=== PATIENT | female | born 1980 | race Caucasian/White ===

== ENCOUNTER → 2024-04-25 09:18 | Day surgery (SDC) | payer BC, MEDICAID, SELFPAY ==
[2024-04-25 09:31] VITALS: BP 138/76; PULSE 68; RESP 20; O2SAT 96; BMI 62.6
[2024-04-25] MEDS: sodium chloride 0.9% 1,000 ML 30 ML IV (10:09)
--- NOTE | 2024-04-25 11:05 | ANES.PREANE2 ---
Pre-Anesthetic Assessment Height/Weight: Height 1.7 m Weight 181.437 kg Pulse Resp BP Pulse Ox O2 Del Method 68 20 H 138/76 96 Room Air 04/25/24 09:31 04/25/24 09:31 04/25/24 09:31 04/25/24 09:31 04/25/24 09:31 Preop Diagnosis: screening Operation Date: 04/25/24 10:30 Proposed Procedures p EGD 65622, 09462, G0105, K62.5, L29.0(Not Applicable) - DO liz Wayne Colonoscopy(Not Applicable) - Mt Mcclure DO Familial anesthetic complications: none Was Beta Samantha taken within 24 hours: N/A Was Clonidine taken within 24 hours: N/A Last intake: Intake Last Liquid Date 04/24/24 Last Liquid Time 19:00 Last Solid Date 04/23/24 Last Solid Time 20:00 Social No alcohol and No tobacco Exam alert, oriented x 3, clear to auscultation bilaterally and regular rate & rhythm Airway Submandibular: within normal limits Cervical ROM: within normal limits Mallampati: Class II Dentition: false History/ROS No significant history except as noted and No significant complaints Pulmonary Shortness of Breath SOB with activity CV/HEM Hypertension None reported Hepatic Hepatitis Hep C GI None reported Metabolic Morbid Obesity [facility] None reported Neuropsych None reported Anesthetic Plan ASA status: 3 Anesthesia: MAC Risk of > 500 ml blood loss (7ml/kg in children): No Medications/Allergies Home Medications Medication Instructions Recorded Confirmed Last Taken Type cyclobenzaprine 10 mg tablet 10 mg PO BID PRN Spasms 03/11/24 04/25/24 Unknown History ibuprofen 800 mg tablet 800 mg PO Q8H PRN pain #30 tabs 03/11/24 04/25/24 Unknown Rx metoprolol tartrate 100 mg tablet 100 mg PO BID 03/11/24 04/25/24 04/24/24 History naproxen 500 mg tablet 500 mg PO TID PRN Pain 03/11/24 04/25/24 Unknown History bupropion HCl 150 mg 24 hr tablet, 150 mg PO BID 04/23/24 04/25/24 04/24/24 History extended release Allergies Allergy/AdvReac Type Severity Reaction Status Date / Time No Known Allergies Allergy Unverified 04/02/24 15:05 Current Medications Generic Name Dose Route Start Last Admin Trade Name Terry PRN Reason Stop Dose Admin Sodium Chloride 1,000 mls @ 30 mls/hr 04/25/24 09:30 04/25/24 10:09 Sodium Chloride 0.9% IV 04/26/24 09:29 30 mls/hr .Q24H CHELSI Administration PFSH Anesthesia Surgical History (Updated 04/02/24 @ 15:37 by Mt Mcclure DO) History of colonoscopy with polypectomy [id number] Social History Smoking and tobacco/nicotine status: never used tobacco/nicotine Data Anesthesia Cardiac Studies: No Data to Display
--- NOTE | 2024-04-25 11:42 | W.PM.OPSUD ---
Surgery/Procedure H&P Update DATE OF PROCEDURE: April 25, 2024 DATE H&P PERFORMED: 04/02/24 H&P UPDATE INFORMATION: I have reviewed H&P completed within last 30 days, I have examined patient prior to procedure and No changes to prior documentation PREOP DIAGNOSIS: screening PLANNED PROCEDURE: Operation Date: 04/25/24 10:30 Proposed Procedures p EGD 92750, 67166, G0105, K62.5, L29.0(Not Applicable) - DO liz Wayne Colonoscopy(Not Applicable) - Mt Mcclure DO
[2024-04-25] MEDS: EPINEPHrine 1 mg/mL INJ XX (12:10)
[2024-04-25 12:32] VITALS: BP 124/78; PULSE 67; RESP 18; TEMP 36.2; O2SAT 93
--- NOTE | 2024-04-25 12:35 | ANE.PACU2 ---
Inpatient post-anesthesia follow up: Airway intact: Yes Vital signs: Temperature 97.1 F Pulse Rate 62 Respiratory Rate 17 Blood Pressure 148/95 Pulse Oximetry 96 Oxygen Delivery Me thod Room Air Oxygen Flow Rate Fraction of Inspir ed Oxygen Hydration adequate: Yes Nausea and vomiting: No Pain level: 1 Mental status: Baseline
[2024-04-25 12:45] VITALS: BP 148/95; PULSE 62; RESP 17; O2SAT 96
== END | disposition home or self-care (01) ==
PROVIDERS: PCP Family Medicine; Visit Provider Surgery
PROC: 0DJ08ZZ Inspection of Upper Intestinal Tract, Via Natural or Artificial Opening Endoscopic (ICD-10-PCS; CPT 43235; principal; 2024-04-25 10:30)
PROC: 0DJD8ZZ Inspection of Lower Intestinal Tract, Via Natural or Artificial Opening Endoscopic (ICD-10-PCS; CPT 45378; 2024-04-25 10:30)
DX: K62.5 Hemorrhage of anus and rectum (principal); L29.0 Pruritus ani; K29.50 Unspecified chronic gastritis without bleeding; K21.00 Gastro-esophageal reflux disease with esophagitis, without bleeding; D12.5 Benign neoplasm of sigmoid colon; K62.1 Rectal polyp; I10 Essential (primary) hypertension; Z86.19 Personal history of other infectious and parasitic diseases; E66.01 Morbid (severe) obesity due to excess calories; Z68.44 Body mass index [BMI] 60.0-69.9, adult
CPT/HCPCS: 43239; 45385; 88305; 88342; J0171; J2704; J7030

== ENCOUNTER 2024-05-31 12:30 | Outpatient (CLI) | payer BC, MEDICAID, SELFPAY | END 2024-05-31 12:31 | disposition home or self-care (01) | LOC: LAB 12:31 | PROVIDERS: PCP Family Medicine; Visit Provider Surgery | DX: K29.70 Gastritis, unspecified, without bleeding (principal); B96.81 Helicobacter pylori [H. pylori] as the cause of diseases classified elsewhere | CPT/HCPCS: 87338 ==

== ENCOUNTER 2024-08-08 09:21 | Outpatient (CLI) | payer BC, SELFPAY ==
--- NOTE | 2024-08-08 09:26 | MR_ITS ---
WS: [id number] MRI LUMBAR SPINE NONCONTRAST HISTORY: BILATERAL LEG WEAKNESS/BACK PAIN W/RADICULOPATHY COMPARISON: None available. TECHNIQUE: Sagittal and axial multisequence imaging is submitted. T11 hemangioma. Mild LEFT curvature lumbar spine. Moderate disc base narrowing at L4-5. Conus terminates normally at L1-2 disc level. L1-L2: Mild RIGHT facet arthritis. No stenosis. L2-L3: Bilateral mild facet arthritis. No stenosis. L3-L4: Mild annular disc bulging with moderate ligamentum flavum and facet arthritis. Facet joint arthritis encroaching into the RIGHT lateral thecal sac and slight encroachment upon the traversing RIGHT L4 nerve root. Mild central, bilateral subarticular recess and RIGHT foraminal stenosis. L4-L5: Diffuse annular disc bulging with osteophytic ridging. Marked facet arthritis. No disc protrusion. Mild central and RIGHT foraminal stenosis. Moderate subarticular recess and LEFT foraminal stenosis. L5-S1: Mild annular disc bulging and osteophytic ridging. Disc osteophyte complex encroaching into the LEFT foramen causing moderate stenosis. There is contact on the exiting LEFT L5 nerve root. Mild RIGHT foraminal stenosis. MR/MR lumbar spine wo con* [id number] IMPRESSION: 1. Moderate degenerative disc disease at L4-5. 2. L4-5: Mild central and RIGHT foraminal stenosis. Moderate subarticular rece ss and LEFT foraminal stenosis due to disc osteophyte disease. 3. Moderate LEFT foraminal stenosis due to disc osteophyte complex. Contact on the exiting LEFT L5 nerve root. Minimal RIGHT foraminal stenosis. 4. L3-4: Mild central, bilateral subarticular recess and RIGHT foraminal steno sis. Mild contact on the RIGHT traversing L4 nerve root by facet joint arthropa thy.
== END 2024-08-08 09:22 | disposition home or self-care (01) ==
LOC: RAD 09:23
PROVIDERS: PCP Family Medicine; Visit Provider Family Medicine
DX: R29.898 Other symptoms and signs involving the musculoskeletal system (principal); M54.16 Radiculopathy, lumbar region; M51.369 Other intervertebral disc degeneration, lumbar region without mention of lumbar back pain or lower extremity pain; M48.061 Spinal stenosis, lumbar region without neurogenic claudication; M25.78 Osteophyte, vertebrae; M47.896 Other spondylosis, lumbar region; D18.09 Hemangioma of other sites; M43.8X6 Other specified deforming dorsopathies, lumbar region; M51.379 Other intervertebral disc degeneration, lumbosacral region without mention of lumbar back pain or lower extremity pain; M48.07 Spinal stenosis, lumbosacral region
CPT/HCPCS: 72148

== ENCOUNTER → 2024-08-27 13:25 | Outpatient (BNVA) | payer BC, SELFPAY | PROVIDERS: PCP Family Medicine; Visit Provider Podiatrist Foot & Ankle Surgery | DX: M79.671 Pain in right foot (principal); M79.672 Pain in left foot; M72.2 Plantar fascial fibromatosis | CPT/HCPCS: 73630 ==

== ENCOUNTER 2024-10-17 13:38 | Outpatient (CLI) | payer BC, MEDICAID, SELFPAY ==
--- NOTE | 2024-10-17 13:45 | XR_ITS ---
WS: [id number] XR shoulder LT min 2V* [id number] REASON FOR EXAM: PAIN IN LEFT SHOULDER FINDINGS: No fracture or focal bone lesion. Significant narrowing of the acromioclavicular joint with moderate osteophytosis. Significant narrowing of the glenohumeral joint with significant osteophytosis of the humeral head. No significant abnormality of the greater biceps tuberosity. XR/XR shoulder LT min 2V* [id number] IMPRESSION: Significant osteoarthritis of the acromioclavicular joint and glenohumeral join t as above.
== END 2024-10-17 13:39 | disposition home or self-care (01) ==
LOC: RAD 13:40
PROVIDERS: PCP Family Medicine; Visit Provider Family Medicine
DX: M19.012 Primary osteoarthritis, left shoulder (principal); M25.712 Osteophyte, left shoulder
CPT/HCPCS: 73030

== ENCOUNTER → 2024-11-07 13:10 | Outpatient (BNVA) | payer BC, MEDICAID, SELFPAY | PROVIDERS: PCP Family Medicine; Visit Provider Specialist | DX: M19.012 Primary osteoarthritis, left shoulder (principal) | CPT/HCPCS: 73030 ==

== ENCOUNTER 2024-12-07 14:39 | Emergency (ER) | payer BC, MEDICAID, SELFPAY ==
--- OUTSIDE RECORDS SUMMARY | 2018-04-17 08:20 | XMS_ITS | Continuity of Care Document ---
Author Organization [facility] Address [address] [place] [phone] Phone Care Team Providers Care Major Appliance Assembly Supervisor Name Role Phone Aden Zamora Unavailable Unavailable Advance Directives Directive Yes / No Effective Date File Name No Information Encounters Encounter Description Practice Location Reason(s) For Visit Diagnoses Date Provider Providers Copied on Encounter [facility], [address] [place] [address], [facility], tel:[phone] *[facility] No Information Sera Samaniego. [address] [place] [address], [facility], . tel:[phone] Family History Family Member Type Diagnosis Age At Onset No Information Payers Payer name Insurance type Covered constitution party ID Authoriza tion(s) No Information Social History [...]
--- OUTSIDE RECORDS SUMMARY | 2024-12-07 14:43 | XMS_ITS | Patient Health Record ---
Author Organization [facility] Address [address] [place], [place] [address] Care Team Providers Care Laborer Prestressed Concrete Name Role Phone Joshua VICK, Cristo Primary Care Provider Katherin VICK, Fahad Sky [phone] Allergies Allergen (clinical drug ingredient) Drug/Non Drug Allergy documented on EMR Reaction Allergy Type Onset Date Status None or not verifiab le (as is Current Medications) (uncoded) Unknown Allergy Active Reason For Referral No Information Medications Medication SIG (Take, Route, Frequency, Duration) Notes Start Date End Date Status fentanyl 50mcg/ml 1-2 ml intravenous m ay repeat PRN for procedural anxiety/ pain 09/20/2007 Active midazolam 1 mg/ml 1-2 mg intravenous m ay repeat PRN for procedural anxiety 09/20/2007 Active Pristiq 100 mg 1 tab orally once a day for 30 day(s) Active hydrochlorothiazide-lisin opril 12.5 mg-10 mg 1 tab orally once a day for 7 day(s) Active Valium 10 mg 1 tab orally 3 times a day for 30 day(s) Active Abilify 20 mg 1 tab orally once a day for 30 day(s) Active [place] 325 mg-10 mg 1 tab orally Q6H, pr n for 10 day(s) Active alfentanil 500mcg/ml 1-2 ml intravenous may repeat PRN for procedural anxiety/ pain 09/20/2007 Active TENS as programmed apply patches to aff ected area as needed for trial followed by permanent device if effective Active metoprolol XL 100 mg 1 tab orally BID fo r 30 day(s) Active gabapentin 300 mg 1 cap orally 2 times a day for 30 day(s) Active None or not verifiable 06/13/19001900 Active ibuprofen 200 mg 2 tab(s) orally Q4H PRN for 10 day(s) Active albuterol 90 mcg/inh 2 puff(s) inhaled P RN for 30 day(s) Active Plan Of Treatment No Information Insurance Providers Payer Name Payer Address Payer Phone Subscriber Number Group Number Insured Name Patient Relationship to Insured Coverage Start Date Coverage End Date [place] [address] [place] [address] [id number] Rosmery López Self - patient is the insured Medical (General) History Medical History History ICD Code None or not verifiable Surgical History Surgery Date(Month/Year) Appendectomy 1991 section 05/2001 Tubal ligation 10/2001 Hospitalization History Reason Date(Month/Year) Surgeries
[2024-12-07 14:58] VITALS: BP 153/97; PULSE 65; RESP 18; TEMP 36.6; O2SAT 97; BMI 62.6
--- NOTE | 2024-12-07 15:10 | XR_ITS ---
WS: [id number] Exam: XR knee LT 3V* [id number] Date/Time of Exam: 12/07/2024 3:15 PM Reason For Exam: pain No fracture. Mild DJD of the lateral joint compartment. No joint effusion. No soft tissue abnormalities noted. XR/XR knee LT 3V* [id number] IMPRESSION: 1. Mild DJD of the lateral joint compartment
--- NOTE | 2024-12-07 15:10 | ED_ITS ---
HPI - Extremity Problem General: Chief complaint: Extremity Problem,Nontraumatic Stated complaint: lt knee inj Time Seen by Provider: 12/07/24 15:03 Source: patient Mode of arrival: ambulatory Limitations: no limitations History of Present Illness: Patient is a 44-year-old female who presents to ED today with complaint of left knee pain. She states she has had pain in the joint over the past 3 days or so. No known injury or trauma. He has not noticed any swelling or overlying redness or warmth. Pain seems to be worse with ambulation. She has not noticed any color or temperature changes to the leg. Denies numbness, tingling, loss of sensation. MD Complaint: joint pain Onset (ago): day(s) (3 days) Pain Consistency: constant Location: left and knee Radiation: none Relieving factors: nothing Exacerbating factors: walking Associated symptoms: Reports no associated symptoms; Deny chest pain Related Data Home Medications ?Medication ?Instructions ?Recorded ?Confirmed naproxen 500 mg tablet 500 mg PO TID PRN Pain 03/1111/07/24 Held on 04/25/24. Instructions: Resume on 04/27/24. phentermine 15 mg capsule 15 mg PO DAILY 07/09/2410/12 metoprolol tartrate 100 mg tablet 100 mg PO DAILY 07/1411/07/24 meloxicam 7.5 mg tablet mg PO 11/07/24 11/07/24 Previous Rx's ?Medication ?Instructions ?Recorded hydroxyzine HCl 25 mg tablet 25 mg PO BID PRN itching #60 tabs 05/14/24 clobetasol 0.05 % topical cream See Rx Instructions .R oute 07/20/24 .COMPLEX #60 grams prazosin 2 mg capsule 2 mg PO .HS #30 caps 5 estradiol 0.01% (0.1 mg/gram) See Rx Instructions .Rou te 11/19/24 vaginal cream .COMPLEX #42.5 grams meloxicam 15 mg tablet 15 mg PO DAILY 30 days #30 t abs 11/19/24 Allergies Allergy/AdvReac Type Severity Reaction Status Date / Time No Known Allergies Allergy Verified 11/07/24 10:21 Review of Systems Card: Denies: chest pain Resp: Denies: dyspnea Musc: Reports: joint pain (L knee); Denies: extremity pain, extremity swelling, joint redness or joint warmth Neuro: Denies: numbness in extremities or sensory changes [facility] ED PFSH: Medical History Psychiatric care Tubular adenoma of colon Surgical History Hx laparoscopic cholecystectomy Hx of carpal tunnel repair Hx of section Hx of tubal ligation History of endometrial ablation Hx of appendectomy History of colonoscopy with polypectomy [id number] Social History Smoking and tobacco/nicotine status: former use of tobacco/nicotine Physical Exam Const: COMMON NORMALS: no acute distress, no limitations, alert and well nourished GENERAL APPEARANCE: cooperative NUTRITIONAL APPEARANCE: obese morbidly obese (BMI is over 62) ORIENTATION/CONSCIOUSNESS: Yes awake, Yes oriented to person, Yes oriented to place and Yes oriented to time Extremity: COMMON NORMALS: full ROM, capillary refill normal, no clubbing, cyanosis or edema, no calf tenderness and no pedal edema GENERAL: Yes normal exam except as noted RIGHT LOWER EXTREMITY: Yes knee joint (TTP posterior L knee; swelling hard to appreciate due to body habitus) Right knee: Yes inspection (normal gross inspection), Yes ROM (normal) and Yes neurovascular exam (normal) Neuro: COMMON NORMALS: moves all extremities, no focal motor deficits and no sensory deficits noted SENSORIUM/ORIENTATION: Yes alert, Yes oriented to person, Yes oriented to place and Yes oriented to time Course Vital Signs: Vital signs: Vital Signs Temperature 97.9 F 12/07/24 14:58 Pulse Rate 65 12/07/24 14:58 Respiratory Rate 18 12/07/24 14:58 Blood Pressure 153/97 12/07/24 14:58 Pulse Oximetry 97 12/07/24 14:58 Oxygen Delivery Me thod Room Air 12/07/24 14:58 MDM - Extremity (Nontraumatic) Medical Decision Making XR of the left knee is unremarkable apart from chronic degenerative changes. She does see [facility] orthopedics for other joint related issues. Recommend she follow-up with her specialist there regarding her knee pain. She does have an upcoming appointment with them for next week. She understood they may require her to schedule another visit for evaluation of the knee as her appointment for next week is regarding her shoulder. Lab Data Radiology Impressions Knee X-Ray 12/07/24 15:10 IMPRESSION: 1. Mild DJD of the lateral joint compartment All radiology interpretation(s) finalized by discharge Discharge Plan Discharge Patient Disposition: Home Clinical Impression: Acute pain of left knee Condition: Stable Prescriptions: No Action hydroxyzine HCl 25 mg tablet 25 mg PO BID PRN (Reason: itching) Qty: 60 3RF naproxen 500 mg tablet 500 mg PO TID PRN (Reason: Pain) metoprolol tartrate 100 mg tablet 100 mg PO DAILY phentermine 15 mg capsule 15 mg PO DAILY Rx Instructions: must administer 2 hours after breakfast prazosin 2 mg capsule 2 mg PO .HS Qty: 30 2RF meloxicam 7.5 mg tablet PO clobetasol 0.05 % cream See Rx Instructions .ROUTE .COMPLEX Qty: 60 0RF Dose Instruction: APPLY TOPICALLY TWICE DAILY FOR 12 WEEKS Rx Instructions: APPLY TOPICALLY TWICE DAILY FOR 12 WEEKS estradiol 0.01 % (0.1 mg/gram) cream See Rx Instructions .ROUTE .COMPLEX Qty: 42.5 0RF Dose Instruction: INSERT PEA SIZED AMOUNT(1 GRAM) INTRAVAGINALLY DAILY FOR 12 WEEKS Rx Instructions: INSERT PEA SIZED AMOUNT(1 GRAM) INTRAVAGINALLY DAILY FOR 12 WEEKS meloxicam 15 mg tablet 15 mg PO DAILY 30 Days Qty: 30 1RF Rx Instructions: Take one tablet daily. Discharge Orders: Discharge ED (Routine); Ordered 12/07/24 Ordered By: Leonela Mckenzie Referrals: Miguelangel Winn MD [Primary Care Provider, Family Practice] Patient Instructions: Patient Portal & Yash Instructions Print Language: Turkmen Coding Level of Care Code ED High Risk Ob for Paula Escobar
== END 2024-12-07 15:49 | disposition home or self-care (01) ==
PROVIDERS: Emergency Provider Physician Assistant; PCP Family Medicine
DX: M25.562 Pain in left knee (principal)
CPT/HCPCS: 73562; 99283

== ENCOUNTER 2024-12-23 13:07 | Emergency (ER) | payer BC, MEDICAID, SELFPAY ==
--- OUTSIDE RECORDS SUMMARY | 2018-04-17 08:20 | XMS_ITS | Continuity of Care Document ---
Author Organization [facility] Address [address] [place] [address] Phone Care Team Providers Care Buyer Agent Name Role Phone Aden Zamora Unavailable Unavailable Advance Directives Directive Yes / No Effective Date File Name No Information Encounters Encounter Description Practice Location Reason(s) For Visit Diagnoses Date Provider Providers Copied on Encounter [facility], [address] [place] [address], [facility], tel:[phone] *[facility] No Information Sera Samaniego. [address] [place] [address], [facility], . tel:[phone] Family History Family Member Type Diagnosis Age At Onset No Information Payers Payer name Insurance type Covered democrat ID Authoriza tion(s) No Information Social History Type Description Quantity Date Captured Comments Sex Unknown Smoking Status No Information Chief Complaint And Reason For Visit No Information Reason For Referral Reason For Referral No Information History Of Present Illness Encounter Date Complaint History Of Prese nt Illness No Information Functional Status Date Functional Assessmen t No Information Instructions Date Instruction Additional Infor mation No Information Assessments Type Assessment Date No Information Patient Care Teams Name Effective Dates (start - stop) Status Members No Information
[2024-12-23 13:08] VITALS: BP 190/114; PULSE 68; TEMP 36.3; O2SAT 97; BMI 62.6
--- NOTE | 2024-12-23 13:08 | XRR_ITS ---
PROCEDURE INFORMATION: Exam: XR Left Knee Exam date and time: 12/23/2024 1:14 PM Age: 44 years old Clinical indication: Left; Lt knee pain x 3 weeks; No known injury TECHNIQUE: Imaging protocol: Radiologic exam of the left knee. Views: 3 views. COMPARISON: CR XR knee LT 3V* [id number] 12/07/2024 3:24 PM FINDINGS: Bones/joints: There are mild tricompartment degenerative changes. No acute fracture or dislocation. A [id number] knee joint effusion is noted Soft tissues: Normal. XR/XR knee LT 3V* [id number] IMPRESSION: 1. No acute fracture or dislocation. 2. Mild tricompartment degenerative changes with a [id number] knee joint effusion
--- OUTSIDE RECORDS SUMMARY | 2024-12-23 13:14 | XMS_ITS | Patient Health Record ---
Author Organization [facility] Address [address] [place], [place] [id number] Care Team Providers Care Knobber Name Role Phone Joshua VICK, Cristo Primary Care Provider Katherin VICK, Fahad Sky [phone] Allergies Allergen (clinical drug ingredient) Drug/Non Drug [...] once a day for 30 day(s) Active Boyds 325 mg-10 mg 1 tab orally Q6H, [...] End Date [place] [address] [place] [id number] Rosmery López Self - patient is the insured Medical (General) History Medical History History ICD Code None or not verifiable Surgical History Surgery Date(Month/Year) Appendectomy 1991 section 05/2001 Tubal ligation 10/2001 Hospitalization History Reason Date(Month/Year) Surgeries
--- NOTE | 2024-12-23 15:26 | ED_ITS ---
HPI - Extremity Problem General: Chief complaint: Extremity Problem,Nontraumatic Stated complaint: lt knee inj Time Seen by Provider: 12/23/24 15:04 History of Present Illness: Patient is 44-year-old female history of hypertension, presents to the ED with worsening left knee pain, and popping. This has been worsening over the last 3 weeks. Now when she is walking, she has popping, and having instability. Denies any injury or trauma to this left knee. She is awaiting to see Dr. Abrams regarding her shoulder on the . She has not yet had follow-up with orthopedics, however did see her primary care. Primary care physician did attempt to order MRI; however patient's insurance declined MRI. Associated symptoms: Deny chest pain, fever(s) or rash Related Data Home Medications ?Medication ?Instructions ?Recorded ?Confirmed naproxen 500 mg tablet 500 mg PO TID PRN Pain 03/1112/11/24 Held on 04/25/24. Instructions: Resume on 04/27/24. phentermine 15 mg capsule 15 mg PO DAILY 07/09/24 0707/07 metoprolol tartrate 100 mg tablet 100 mg PO DAILY 07/1412/11/24 meloxicam 7.5 mg tablet mg PO 11/07/24 12/11/24 Previous Rx's ?Medication ?Instructions ?Recorded hydroxyzine HCl 25 mg tablet 25 mg PO BID PRN itching #60 tabs 05/14/24 clobetasol 0.05 % topical cream See Rx Instructions .R oute 07/20/24 .COMPLEX #60 grams prazosin 2 mg capsule 2 mg PO .HS #30 caps 5 estradiol 0.01% (0.1 mg/gram) See Rx Instructions .Rou te 11/19/24 vaginal cream .COMPLEX #42.5 grams meloxicam 15 mg tablet 15 mg PO DAILY 30 days #30 t abs 11/19/24 celecoxib 200 mg capsule 200 mg PO DAILY 30 days #30 caps 12/23/24 methocarbamol 500 mg tablet 500 mg PO Q8H PRN muscle s pasm #30 12/23/24 tabs Allergies Allergy/AdvReac Type Severity Reaction Status Date / Time No Known Allergies Allergy Verified 12/23/24 13:14 Review of Systems Const: Denies: fever(s) or chills Eyes: Denies: change in vision or blurry vision ENMT: Denies: throat pain or dry mouth Card: Denies: chest pain or palpitations Resp: Denies: dyspnea or non-productive cough GI: Denies: abdominal pain, nausea or vomiting : Denies: flank pain or difficulty voiding Musc: Reports: extremity pain, joint pain, joint stiffness, limited range of motion and muscle weakness; Denies: neck pain, back pain, extremity swelling or joint swelling Skin/Breast: Denies: rash or pruritus Neuro: Denies: headache(s) or numbness in extremities Psych: Denies: anxiety or depression Endo: Denies: polyuria or polydipsia Alexander/Lymph: Denies: easy bruising or easy bleeding All/Imm: Denies: urticaria or throat swelling PFSH ED PFSH: Medical History (Updated 12/23/24 @ 15:28 by SHUN Brooke) Psychiatric care Tubular adenoma of colon Surgical History Hx laparoscopic cholecystectomy Hx of carpal tunnel repair Hx of section Hx of tubal ligation History of endometrial ablation Hx of appendectomy History of colonoscopy with polypectomy [id number] Social History Smoking and tobacco/nicotine status: former use of tobacco/nicotine Physical Exam 2 Const: COMMON NORMALS: no acute distress, average body habitus and patient oriented x3 GENERAL APPEARANCE: cooperative and comfortable ORIENTATION/CONSCIOUSNESS: Yes awake HENMT: COMMON NORMALS: normocephalic and atraumatic HEAD & SCALP: normocephalic and atraumatic Neck/C-Spine: COMMON NORMALS: full ROM and no lymphadenopathy Lymph: LYMPHATIC: no lymphadenopathy noted Chest: COMMONS NORMALS: normal inspection of the chest and normal palpation of entire chest wall Resp: COMMON NORMALS: normal respiratory effort and No retractions Cardio: COMMON NORMALS: regular rate and regular rhythm RATE: regular rate RHYTHM: regular rhythm GI: COMMON NORMALS: Normal to inspection, nondistended, normoactive bowel sounds present and Soft to palpation PALPATION: Yes Soft to palpation : COMMON NORMALS: Yes no CVA tenderness BLADDER/KIDNEY EXAM: Yes no CVA tenderness Back/Pelvis: COMMON NORMALS: no CVA tenderness Extremity: LEFT LOWER EXTREMITY: Yes knee joint Left knee: Yes inspection (no effusion), Yes palpation (no pain on movement), Yes ROM (intact) and Yes special tests Left knee special tests: Anterior drawer sign: Negative, Anterior Doc test: Negative, Posterior Doc test: Negative, Valgus stress test: Negative and Varus stress test: Negative Neuro: COMMON NORMALS: patient oriented x3 Psych: COMMON NORMALS: mental status grossly normal and Normal thought process present THOUGHT PROCESS: Normal thought process present Skin: COMMON NORMALS: no rashes or lesions noted and no wounds GENERAL SKIN EXAM: no rashes or lesions noted Course Vital Signs: Vital signs: Vital Signs Temperature 97.4 F L 12/23/24 13:08 Pulse Rate 68 12/23/24 13:08 Blood Pressure 190/114 12/23/24 13:08 Pulse Oximetry 97 12/23/24 13:08 Oxygen Delivery Me thod Room Air 12/23/24 13:08 MDM - Extremity (Nontraumatic) Medical Decision Making Patient is a 44-year-old morbidly obese female with pain to left knee. When compared to the right knee, this appears about the same size. X-ray notes small to moderate knee joint effusion. I do not believe this is amicable to drain. She does have range of motion although with pain, and popping, some instability. Discussed with patient. She has an appointment with Dr. Abrams on 12/26 for her shoulder, which I have asked her to call in the morning and change it to her knee, or add knee evaluation since she does have a small to moderate knee joint effusion. I have also added celecoxib and Robaxin to her regimen to help with pain control. Explained to patient at length and asked her not to use any other NSAIDs. Medical Records I reviewed the patient's medical records. Lab Data Radiology Impressions Knee X-Ray 12/23/24 13:08 IMPRESSION: 1. No acute fracture or dislocation. 2. Mild tricompartment degenerative changes with a [id number] knee joint effusion All radiology interpretation(s) finalized by discharge ED provider radiology interpretation(s): no acute/joint effusion noted Discharge Plan Discharge Patient Disposition: Home Clinical Impression: Acute pain of left knee Condition: Stable Prescriptions: New celecoxib 200 mg capsule 200 mg PO DAILY 30 Days Qty: 30 0RF methocarbamol 500 mg tablet 500 mg PO Q8H PRN (Reason: muscle spasm) Qty: 30 0RF No Action hydroxyzine HCl 25 mg tablet 25 mg PO BID PRN (Reason: itching) Qty: 60 3RF naproxen 500 mg tablet 500 mg PO TID PRN (Reason: Pain) metoprolol tartrate 100 mg tablet 100 mg PO DAILY phentermine 15 mg capsule 15 mg PO DAILY Rx Instructions: must administer 2 hours after breakfast prazosin 2 mg capsule 2 mg PO .HS Qty: 30 2RF meloxicam 7.5 mg tablet PO clobetasol 0.05 % cream See Rx Instructions .ROUTE .COMPLEX Qty: 60 0RF Dose Instruction: APPLY TOPICALLY TWICE DAILY FOR 12 WEEKS Rx Instructions: APPLY TOPICALLY TWICE DAILY FOR 12 WEEKS estradiol 0.01 % (0.1 mg/gram) cream See Rx Instructions .ROUTE .COMPLEX Qty: 42.5 0RF Dose Instruction: INSERT PEA SIZED AMOUNT(1 GRAM) INTRAVAGINALLY DAILY FOR 12 WEEKS Rx Instructions: INSERT PEA SIZED AMOUNT(1 GRAM) INTRAVAGINALLY DAILY FOR 12 WEEKS meloxicam 15 mg tablet 15 mg PO DAILY 30 Days Qty: 30 1RF Rx Instructions: Take one tablet daily. Discharge Orders: Discharge ED (Routine); Ordered 12/23/24 Ordered By: Pau Aguilar Referrals: Miguelangel Winn MD [Primary Care Provider, [facility]] Discharge Diet: Usual diet Discharge Activity: Limit activity as instructed Patient Instructions: Knee Pain (ED), P.R.I.C.E. Treatment (ED), Patient Portal & Yash Instructions Activity Restrictions/Additional Instructions: Garcia wrap, ice, elevate, compress Take medication as prescribed Do not take other NSAIDs such as naproxen/Aleve, aspirin, Excedrin, ibuprofen Call on Tuesday to add an appointment for your knee with Dr. Abrams. Return to ED for worsening pain, or if you have a fever, greater than 100.4 ?F, redness around this joint. Print Language: Albanian Coding Level of Care Code ED Shoe Dyer for Paula Escobar
[2024-12-23] MEDS: orphenadrine 30 mg/mL Inj 2 mL 60 MG IM (15:56)
== END 2024-12-23 16:10 | disposition home or self-care (01) ==
PROVIDERS: Emergency Provider Physician Assistant; PCP Family Medicine
DX: M25.562 Pain in left knee (principal); I10 Essential (primary) hypertension; Z79.899 Other long term (current) drug therapy
CPT/HCPCS: 73562; 96372; 99284; J1885; J2360

== ENCOUNTER → 2024-12-31 08:33 | Outpatient (BNVA) | payer BC, MEDICAID, SELFPAY | PROVIDERS: PCP Family Medicine; Visit Provider Specialist | DX: M17.12 Unilateral primary osteoarthritis, left knee (principal) | CPT/HCPCS: 73560; 73565 ==

== ENCOUNTER 2025-01-11 12:56 | Outpatient (CLI) | payer BC, MEDICAID, SELFPAY ==
--- NOTE | 2025-01-11 13:00 | MR_ITS ---
WS: [id number] MRI LEFT KNEE HISTORY: left knee pain COMPARISON: Radiograph 12/23/2024 Quality of this study is compromised by body habitus and motion. Anterior cruciate ligament: ACL is difficult to see in its entirety but it does appear to be intact. No full-thickness tear. Posterior cruciate ligament: Intact. Medial collateral ligament: Intact. Posterior lateral corner structures: Intact. Medial menisci: Intact. Normal signal, size and shape. Lateral meniscus: Anterior horn is extruded from the joint space. For the meniscus to be this far extruded there is probably a tear near the free edge. Posterior horn is normal. Extensor mechanism: Distal quadriceps tendon and patellar tendons are intact. Fluid and soft tissue: Large suprapatellar joint effusion. Mild amount of soft tissue edema surrounding the knee. No Bentley's cyst. Osseous and articular structures: Patellofemoral compartment: Moderate lateral subluxation of the patella. Retinaculum are intact. The medial retinaculum is thin. Subchondral edema in the lateral patellar facet. There is severe narrowing of the lateral compartment. Diffuse chondromalacia involving both the medial and lateral patellar facets. Medial compartment: Mild narrowing of the medial compartment. Diffuse mild thinning of the cartilage. No fracture identified. Lateral compartment: Moderate lateral compartment narrowing. Moderate diffuse chondromalacia. There is a small amount of edema in the lateral femoral condyle and the lateral tibial plateau. There is a small osteochondral defect surrounded by edema measuring 4 mm involving the lateral femoral condyle towards the intercondylar notch. No intra-articular body identified. Possible intra-articular body identified posterior to the PCL, 5 mm. MR/MR knee LT con* [id number] IMPRESSION: 1. Quality of this exam is compromised by body habitus and motion. 2. Anterior horn of the lateral meniscus is completely extruded from the joint space. Meniscal tear at the free edge is suspected to result in this amount of extrusion. 3. Large suprapatellar joint effusion. 4. Mild soft tissue edema surrounding the knee. 5. Moderate lateral subluxation of the patella within medial patellar retinacu lum. 6. Diffuse chondromalacia medial and lateral patellar facets and a small amoun t of subchondral edema in the lateral facet. 7. Moderate lateral compartment joint space narrowing with diffuse chondromala dorinda. 8. Edema in the lateral femoral condyle and the tibial plateau. 9. Osteochondral defect surrounded by edema in the lateral femoral condyle tow ards the intercondylar notch. 10. Possible intra-articular body identified posterior to the PCL measures 5 m m. 11. Mild narrowing the medial compartment with mild chondromalacia.
== END 2025-01-11 12:57 | disposition home or self-care (01) ==
LOC: RAD 12:57
PROVIDERS: PCP Family Medicine; Visit Provider Specialist
DX: M17.12 Unilateral primary osteoarthritis, left knee (principal); M25.562 Pain in left knee
CPT/HCPCS: 73721

== ENCOUNTER 2025-03-06 13:53 | Emergency (ER) | payer MEDICAID, SELFPAY ==
[2025-03-06 13:57] VITALS: BP 144/92; PULSE 86; TEMP 36.4; O2SAT 96; BMI 61.4
[2025-03-06] MEDS: ondansetron 2 mg/ML SDV 2 mL 4 MG IVP (14:22)
--- NOTE | 2025-03-06 14:22 | PC.NURSE ---
educated pt on need for urine sample; pt denying straight cath option at this time, requesting to wait for fluids to infuse before attempting.
[2025-03-06 14:24] VITALS: BP 110/90; PULSE 86; O2SAT 99
[2025-03-06 14:24] LABS: Hematocrit 47.6 % (36-47); Hemoglobin 15.80 g/dL (11.27-16.99); Mean Corpuscular HGB Conc 33.2 g/dL (30-55); Mean Corpuscular Hemoglobin 27.1 pg (27-33); Mean Corpuscular Volume 81.8 fl (85-98); Nucleated Red Blood Cells % 0 %; Platelet Count 224 10^3/cmm (157-399); Red Blood Count 5.82 10^6/uL (3.85-5.65); White Blood Count 6.31 10^3/uL (3.29-11.43)
--- NOTE | 2025-03-06 14:28 | W.ED.NAVMDI ---
HPI - Nausea/Vomiting/Diarrhea General: Chief complaint: Nausea/Vomiting/Diarrhea Stated complaint: N/V/D for 5 days Time Seen by Provider: 03/06/25 14:06 History of Present Illness: 45-year-old female presents emergency room complaints of nausea vomiting diarrhea for last 5 days multiple loose watery stools no hematochezia or melena. Did not recently been on any antibiotics she is on a GLP-1. No fever sweats chills no previous abdominal surgeries. No abdominal pain just a vague aching from having recurrent diarrhea. She had 1 episode of vomiting with no hematemesis coffee-ground emesis per Associated nausea: Yes Associated symtoms: Reports nausea; Denies chest pain or dysuria Related Data Home Medications ?Medication ?Instructions ?Recorded ?Confirmed naproxen 500 mg tablet 500 mg PO TID PRN Pain 03/11/24 12/31/24 Held on 04/25/24. Instructions: Resume on 04/27/24. phentermine 15 mg capsule 15 mg PO DAILY 07/09/24 12/31/24 metoprolol tartrate 100 mg tablet 100 mg PO DAILY 07/30/24 12/31/24 meloxicam 7.5 mg tablet mg PO 11/07/24 12/31/24 tizanidine 4 mg tablet mg PO 12/31/24 12/31/24 tramadol 50 mg tablet mg PO 12/31/24 12/31/24 Previous Rx's ?Medication ?Instructions ?Recorded hydroxyzine HCl 25 mg tablet 25 mg PO BID PRN itching #60 tabs 05/14/24 clobetasol 0.05 % topical cream See Rx Instructions .Route 07/20/24 .COMPLEX #60 grams prazosin 2 mg capsule 2 mg PO .HS #30 caps 07/30/24 estradiol 0.01% (0.1 mg/gram) See Rx Instructions .Route 11/19/24 vaginal cream .COMPLEX #42.5 grams meloxicam 15 mg tablet 15 mg PO DAILY 30 days #30 tabs 11/19/24 methocarbamol 500 mg tablet 500 mg PO Q8H PRN muscle spasm #30 12/23/24 tabs cephalexin 500 mg capsule 500 mg PO TID 7 days #21 caps 03/06/25 promethazine 25 mg tablet 25 mg PO Q6H PRN nausea and 03/06/25 vomiting #20 tabs Allergies Allergy/AdvReac Type Severity Reaction Status Date / Time No Known Allergies Allergy Verified 03/06/25 14:02 Review of Systems Const: Denies: fever(s) or chills Card: Denies: chest pain Resp: Denies: dyspnea GI: Reports: abdominal pain, nausea, vomiting (1 episode) and diarrhea (Multiple episodes of watery diarrhea); Denies: hematemesis, coffee ground emesis, hematochezia or melena : Denies: dysuria, urinary frequency or urinary urgency Musc: Denies: neck pain or back pain Skin/Breast: Denies: rash PFSH ED PFSH: Medical History Psychiatric care Tubular adenoma of colon Surgical History Hx laparoscopic cholecystectomy Hx of carpal tunnel repair Hx of section Hx of tubal ligation History of endometrial ablation Hx of appendectomy History of colonoscopy with polypectomy [id number] Social History Smoking and tobacco/nicotine status: former use of tobacco/nicotine Physical Exam Const: GENERAL APPEARANCE: cooperative ORIENTATION/CONSCIOUSNESS: Yes awake, Yes oriented to person, Yes oriented to place and Yes oriented to time HENMT: COMMON NORMALS: normocephalic, atraumatic and hearing grossly normal bilaterally HEAD & SCALP: normocephalic and atraumatic Resp: COMMON NORMALS: normal respiratory effort, No retractions, No use of accessory muscles and clear to auscultation bilaterally AUSCULTATION: clear to auscultation bilaterally Cardio: COMMON NORMALS: regular rate, regular rhythm and No murmurs present (Cardio) RATE: regular rate RHYTHM: regular rhythm GI: COMMON NORMALS: Soft to palpation and No hepatosplenomegaly present AUSCULTATION: Yes normoactive bowel sounds PALPATION: Yes Soft to palpation, No Tenderness to palpation present (GI), No Guarding due to palpation present (GI) and Yes No hepatosplenomegaly present Extremity: COMMON NORMALS: normal to inspection, capillary refill normal, no clubbing, cyanosis or edema, no calf tenderness and no pedal edema Neuro: SENSORIUM/ORIENTATION: Yes oriented to person, Yes oriented to place and Yes oriented to time Skin: COMMON NORMALS: no rashes or lesions noted GENERAL SKIN EXAM: no rashes or lesions noted Course Vital Signs: Vital signs: Vital Signs Temperature 97.5 F L 03/06/25 13:57 Pulse Rate 78 03/06/25 15:57 Blood Pressure 125/94 03/06/25 15:57 Pulse Oximetry 97 03/06/25 15:57 Oxygen Delivery Me thod Room Air 03/06/25 14:24 MDM - Nausea/Vomiting/Diarrhea Medical Decision Making Patient feels improved after IV fluids laboratory test unremarkable she does have asymptomatic hematuria went back and reviewed with again she has had no sharp flank pain no significant dysuria urgency. She has not had any gross hematuria or hematochezia. She did have trace leukocyte esterase we will put her on cephalexin for now until the culture returns. Advised her she needs to have a recheck of her urine within the next 7 to 10 days if she still is microscopic hematuria she may need further evaluation. Discharge home recommend clear liquids gave promethazine to use as needed Medical Records I reviewed the patient's medical records. Lab Data I reviewed the patient's lab results. 03/06/25 14:17 03/06/25 14:17 Laboratory Results WBC 6.31 10^3/uL (3.29-11.43) 03/06/25 14:17 RBC 5.82 10^6/uL (3.85-5.65) H 03/06/25 14:17 Hgb 15.80 g/dL (11.27-16.99) 03/06/25 14:17 Hct 47.6 % (36-47) H 03/06/25 14:17 MCV 81.8 fl (85-98) L 03/06/25 14:17 MCH 27.1 pg (27-33) 03/06/25 14:17 MCHC 33.2 g/dL (30-55) 03/06/25 14:17 RDW 12.5 % (12.1-15.1) 03/06/25 14:17 Plt Count 224 10^3/cmm (157-399) 03/06/25 14:17 MPV 10.2 fL (7.4-10.4) 03/06/25 14:17 Neut % (Auto) 56.9 % 03/06/25 14:17 Lymph % (Auto) 28.4 % 03/06/25 14:17 [place] % (Auto) 12.7 % 03/06/25 14:17 Eos % (Auto) 1.4 % 03/06/25 14:17 Baso % (Auto) 0.3 % 03/06/25 14:17 Neut # (Auto) 3.59 10^3/uL (1.8-7.7) 03/06/25 14:17 Lymph # (Auto) 1.8 10^3/uL (0.8-4.8) 03/06/25 14:17 [place] # (Auto) 0.8 10^3/uL (0.2-0.9) 03/06/25 14:17 Eos # (Auto) 0.1 10^3/uL (0.0-0.8) 03/06/25 14:17 Baso # (Auto) 0.0 10^3/uL (0.0-0.1) 03/06/25 14:17 Nucleated RBC % (auto) 0 % 03/06/25 14:17 Nucleated RBCs # 0.0 /100WBC 03/06/25 14:17 Sodium 140 mmol/L (136-145) 03/06/25 14:17 Potassium 4.1 mmol/L (3.5-5.1) 03/06/25 14:17 Chloride 106 mmol/L (98-107) 03/06/25 14:17 Carbon Dioxide 24 mmol/L (22-29) 03/06/25 14:17 Anion Gap 14.1 (5-19) 03/06/25 14:17 BUN 18 mg/dL (6-20) 03/06/25 14:17 Creatinine 1.2 mg/dL (0.5-0.9) H 03/06/25 14:17 GFR Calculation 48.2 mL/min (90-130) L 03/06/25 14:17 Glucose 100 mg/dL (65-115) 03/06/25 14:17 Calculated Osmolality 292 mOsm/kg (285-295) 03/06/25 14:17 Calcium 9.3 mg/dL (8.5-10.5) 03/06/25 14:17 Total Bilirubin 0.7 mg/dL (0.15-1.2) 03/06/25 14:17 AST 19 U/L (0-32) 03/06/25 14:17 ALT 18 U/L (0-33) 03/06/25 14:17 Alkaline Phosphatase 72 U/L (35-105) 03/06/25 14:17 Total Protein 7.8 g/dL (6.6-8.7) 03/06/25 14:17 Albumin 4.2 g/dL (3.5-5.2) 03/06/25 14:17 Globulin 3.6 g/dL (1.3-4.6) 03/06/25 14:17 Urine Color Dark yellow (Yellow) A 03/06/25 15:22 Urine Appearance Cloudy (CLEAR) A 03/06/25 15:22 Urine pH 5.0 (5-7) 03/06/25 15:22 Ur Specific [place] 1.030 (1.005-1.030) 03/06/25 15:22 Urine Protein 1+ (Negative) A 03/06/25 15:22 Urine Glucose (UA) Negative (Normal) 03/06/25 15:22 Urine Ketones 1+ (Negative) H 03/06/25 15:22 Urine Blood 3+ (Negative) A 03/06/25 15:22 Urine Nitrate Negative (Negative) 03/06/25 15:22 Urine Bilirubin 2+ (Negative) H 03/06/25 15:22 Urine Urobilinogen 1.0 mg/dL (Negative) 03/06/25 15:22 Ur Leukocyte Esterase Trace (Negative) A 03/06/25 15:22 Urine RBC 51-100 /hpf (0-2) H 03/06/25 15:22 Urine WBC 0-5 /hpf (0-5) 03/06/25 15:22 Ur Squamous Epith Cells 6-10 /hpf (0-5) 03/06/25 15:22 Amorphous Sediment 3+ /hpf 03/06/25 15:22 Urine Bacteria None seen /hpf (NONE) 03/06/25 15:22 Hyaline Casts 26.47 /lpf 03/06/25 15:22 No radiology studies performed this visit Discharge Plan Discharge Patient Disposition: Home Clinical Impression: Gastroenteritis, Asymptomatic microscopic hematuria Condition: Stable Prescriptions: New promethazine 25 mg tablet 25 mg PO Q6H PRN (Reason: nausea and vomiting) Qty: 20 0RF cephalexin 500 mg capsule 500 mg PO TID 7 Days Qty: 21 0RF No Action hydroxyzine HCl 25 mg tablet 25 mg PO BID PRN (Reason: itching) Qty: 60 3RF tizanidine 4 mg tablet PO tramadol 50 mg tablet PO naproxen 500 mg tablet 500 mg PO TID PRN (Reason: Pain) metoprolol tartrate 100 mg tablet 100 mg PO DAILY phentermine 15 mg capsule 15 mg PO DAILY Rx Instructions: must administer 2 hours after breakfast prazosin 2 mg capsule 2 mg PO .HS Qty: 30 2RF meloxicam 7.5 mg tablet PO clobetasol 0.05 % cream See Rx Instructions .ROUTE .COMPLEX Qty: 60 0RF Dose Instruction: APPLY TOPICALLY TWICE DAILY FOR 12 WEEKS Rx Instructions: APPLY TOPICALLY TWICE DAILY FOR 12 WEEKS estradiol 0.01 % (0.1 mg/gram) cream See Rx Instructions .ROUTE .COMPLEX Qty: 42.5 0RF Dose Instruction: INSERT PEA SIZED AMOUNT(1 GRAM) INTRAVAGINALLY DAILY FOR 12 WEEKS Rx Instructions: INSERT PEA SIZED AMOUNT(1 GRAM) INTRAVAGINALLY DAILY FOR 12 WEEKS meloxicam 15 mg tablet 15 mg PO DAILY 30 Days Qty: 30 1RF Rx Instructions: Take one tablet daily. methocarbamol 500 mg tablet 500 mg PO Q8H PRN (Reason: muscle spasm) Qty: 30 0RF Discharge Orders: Discharge ED (Routine); Ordered 03/06/25 Ordered By: Navdeep Jesus Referrals: Miguelangel Winn MD [Primary Care Provider, Family Practice] Discharge Diet: Clear Liquid Discharge Activity: Increase activity as tolerated Patient Instructions: Opioid Safety, Pain Management, Patient Portal & Yash Instructions Activity Restrictions/Additional Instructions: Thank you for choosing [facility] for your healthcare needs today. It is very important that you follow up as instructed or that you return to the Emergency Department should you have concerns or if your condition changes or worsens in any way. Emergency department visits are focused on emergent conditions, in some cases you may require further evaluation on an outpatient basis. You were seen in the emergency room with complaints of diarrhea for the last several days. Your laboratory test did not show any emergent conditions. You reported improvement with IV fluids given will discharge you home with promethazine to use as needed. You are also noted to have some mild hematuria. Urine will be cultured. We started you on antibiotics 1 pill 3 times a day for 7 days until the culture returns. Recommend that you follow-up with your primary care doctor within the next 7 to 10 days. Your urine should be rechecked if you have persistent hematuria you may need further evaluation by a urologist. (Please note that included in your discharge packet is information concerning opioid safety and pain management. This information is given to all patients were discharged from the ER regardless of their discharge diagnosis or the medicines they usually take or are prescribed.) Print Language: Bruneian Coding Level of Care Code ED Mortgage Loan Computation Clerk for Paula Escobar
[2025-03-06 14:42] LABS: Slide Review Slide Review Perform
[2025-03-06 14:43] LABS: Alanine Aminotransferase 18 U/L (0-33); Albumin Level 4.2 g/dL (3.5-5.2); Alkaline Phosphatase 72 U/L (35-105); Anion Gap 14.1 (5-19); Aspartate Amino Transferase 19 U/L (0-32); Blood Urea Nitrogen 18 mg/dL (6-20); Calcium 9.3 mg/dL (8.5-10.5); Carbon Dioxide 24 mmol/L (22-29); Chloride 106 mmol/L (98-107); Creatinine Clr Calc Pharmacy 98.8886; Globulin 3.6 g/dL (1.3-4.6); Glucose 100 mg/dL (65-115); Osmolality Calculated 292 mOsm/kg (285-295); Potassium 4.1 mmol/L (3.5-5.1); Sodium 140 mmol/L (136-145); Total Protein 7.8 g/dL (6.6-8.7)
[2025-03-06 15:32] LABS: Glucose Urine UA Negative (Normal); Nitrate Urine Negative (Negative); Specific Gravity, Urine 1.030 (1.005-1.030)
[2025-03-06 15:35] LABS: Add Urine Microscopic? YES
[2025-03-06 15:44] LABS: UA Slide Review UA Slide Review Perf
[2025-03-06 15:57] VITALS: BP 125/94; PULSE 78; O2SAT 97
== END 2025-03-06 16:04 | disposition home or self-care (01) ==
PROVIDERS: Emergency Provider Family Medicine; PCP Family Medicine
DX: K52.9 Noninfective gastroenteritis and colitis, unspecified (principal); R31.21 Asymptomatic microscopic hematuria; Z87.891 Personal history of nicotine dependence
CPT/HCPCS: 36415; 80053; 81001; 85025; 87086; 96374; 99284; J2405; J7030